=== PATIENT | male | born 1995 | race Two or more races ===

== ENCOUNTER 2022-09-30 07:31 | Emergency (ER) | payer OTHER ==
[~2022-09-30] VITALS: Ht 165.1 cm; Wt 86.2 kg
--- NOTE | 2022-09-30 08:13 | NUR ---
PAGED RT FOR TREATMENT
[2022-09-30] MEDS ORDERED: IPRATROPIUM NEB FS 0.5 MG/2.5 ML AMPUL.NEB ONE ×3 (08:19→10:30)
[2022-09-30] MEDS ORDERED: ALBUTEROL FS 2.5 MG/3 ML VIAL.NEB ONE ×4 (08:19→11:29)
[2022-09-30] MEDS ORDERED: ALBU18HF2 INH (08:22)
[2022-09-30] MEDS ORDERED: PRED50TA PO (08:22)
[2022-09-30] MEDS ORDERED: ALBU2.5V13 NEB (08:22)
[2022-09-30] MEDS ORDERED: NEBU-171 MC (08:22)
[2022-09-30] MEDS ORDERED: IPRATROPIUM NEB FS 0.5 MG/2.5 ML AMPUL.NEB NEB ONE ×3 (08:30→10:30)
[2022-09-30] MEDS ORDERED: predniSONE 50 MG TABLET PO ONE (08:30)
[2022-09-30] MEDS ORDERED: ALBUTEROL FS 2.5 MG/3 ML VIAL.NEB NEB ONE ×2 (08:30→09:30)
[2022-09-30] MEDS ORDERED: predniSONE 20 MG TABLET ONE (08:31)
--- NOTE | 2022-09-30 09:10 | NUR ---
PAGED RT FOR ANOTHER BREATHING TREATMENT
[2022-09-30] MEDS ORDERED: ALBUTEROL FS 2.5 MG/3 ML VIAL.NEB CONTNEB ONE ×3 (10:30→11:30)
[2022-09-30] MEDS ORDERED: Magnesium 1 GM/2 ML VIAL IV ONE (11:30)
[2022-09-30] MEDS ORDERED: Magnesium 1GM/D5W 100ML PREMIX 200 ML IV ONE (11:52)
--- NOTE | 2022-09-30 14:23 | NUR ---
PT DISCHARGED LUNGS CLEAR TO AUSCULTATION O2 SAT 94% BREATHING EVENLY AND UNLABORED. DENIES SOB GIVEN EDUCATION AND PERSCRIPTIONS
[2022-09-30 14:29] VITALS: BP 134/68
== END 2022-09-30 14:31 | disposition home or self-care (01) ==
LOC: ER 07:37
DX: J45.909 Unspecified asthma, uncomplicated (principal); Z79.899 Other long term (current) drug therapy
CPT/HCPCS: 99285; 96374; 94640 ×3; 94644; A4223; J3475